=== PATIENT | female | born 1945 | race Caucasian/White ===

== ENCOUNTER 2016-09-23 15:38 | Emergency (ER) | payer MEDICARE ==
[~2016-09-23] VITALS: Ht 162.6 cm; Wt 92.3 kg
[~2016-09-23 15:38] MED LIST: CLON.1 PO; CYAN1000P SC; DICL50TA3 PO; LANSO15 PO; LANTINJ SQ; LEVO100T4 PO; LISI-363 PO; LOSA50TA PO; LOVA40TA PO; METO50TA11 PO
[2016-09-23 15:41] VITALS: BP 227/99; PULSE 68; RESP 16; TEMP 98.8; O2SAT 96
[2016-09-23] MEDS ORDERED: LANTINJ SQ (15:59)
[2016-09-23] MEDS ORDERED: EZET1TAB8 PO (15:59)
[2016-09-23] MEDS ORDERED: ATEN50TA PO (15:59)
[2016-09-23] MEDS ORDERED: CYAN100025 SL (15:59)
[2016-09-23] MEDS ORDERED: LATA0.002 EACH EYE (15:59)
[2016-09-23] MEDS ORDERED: LEVO50TA4 PO (15:59)
[2016-09-23] MEDS ORDERED: OMEP20TA PO (15:59)
[2016-09-23] MEDS ORDERED: ACETAMINOPHEN 650 MG/20.3 ML UDC PO ONE (16:15)
[2016-09-23] MEDS ORDERED: ATENOLOL 50 MG TAB PO ONE (16:15)
--- NOTE | 2016-09-23 16:18 | PD ---
HPI Chief Complaint: ENT Complaint Time Seen by Provider: 15:54 Travel History International Travel<30 days: No Contact w/Intl Traveler<30days: No Traveled to known affect area: No History of Present Illness HPI 71yo F with PMH of HTN presents to the ED with c/o right sided throat pain since last night. Also feels right ear popping. +Odynophagia. Pt has been eating soft food today. Denies any fever, drooling, cough, hoarse voice, chest pain, sob, n/v, abdominal pain, focal weakness or numbness. PFSH Past Medical History Cardiovascular Problems: Yes (syncopal episodes) High Cholesterol: Yes Diabetes: Yes Patient Takes Glucophage: No Diminished Hearing: No Hypertension: Yes Immunizations Current: Yes Thyroid Disease: Yes (Hypo-) Tetanus Vaccination: Unknown Influenza Vaccination: Yes ?: Not Menopausal: Yes Past Surgical History Cardiac Surgery: Yes (loop recorder) Cholecystectomy: Yes Hysterectomy: Yes Social History Alcohol Use: No Tobacco Use: No Substance Use: No Allergies-Medications (Allergen,Severity, Reaction): Coded Allergies: No Known Allergies (Unverified , 09/23/16) Reported Meds & Prescriptions Reported Meds & Active Scripts Active Reported Ezetimibe 10 Mg Tab 10 Mg PO DAILY Latanoprost Opth Drops (Latanoprost) 0.005% Drops 1 Drop EACH EYE HS Refrigerate until opened. Atenolol 50 Mg Tab 50 Mg PO DAILY Levothyroxine (Levothyroxine Sodium) 50 Mcg Tab 50 Mcg PO DAILY Omeprazole 20 Mg Tab 20 Mg PO DAILY Lantus Solostar Pen Inj (Insulin Glargine) 300 Unit/3 Ml Pen 1 Units SQ B-12 (Cyanocobalamin) 1,000 Mcg Subl 1,000 Mcg SL DAILY Review of Systems Except as stated in HPI: all other systems reviewed are Neg Physical Exam Narrative GENERAL: 71yo F not in distress. SKIN: Focused skin assessment warm/dry. HEAD: Atraumatic. Normocephalic. EYES: Pupils equal and round. No scleral icterus. No injection or drainage. ENT: Throat: Uvula midline. Mild peritonsillar swelling and redness on right. +right cervical lymphadenopathy. TM wnl bilaterally. NECK: Trachea midline. No JVD. CARDIOVASCULAR: Regular rate and rhythm. No murmur appreciated. RESPIRATORY: No accessory muscle use. Clear to auscultation. Breath sounds equal bilaterally. GASTROINTESTINAL: Abdomen soft, non-tender, nondistended. MUSCULOSKELETAL: No obvious deformities. No clubbing. No cyanosis. No edema. NEUROLOGICAL: Awake and alert. No obvious cranial nerve deficits. Motor grossly within normal limits. Normal speech. PSYCHIATRIC: Appropriate mood and affect; insight and judgment normal. Data Data Last Documented VS Vital Signs Date Time Temp Pulse Resp B/P Pulse Ox O2 Delivery O2 Flow Rate FiO2 09/23/16 17:26 183/88 09/23/16 15:41 98.8 68 16 96 Orders Acetaminophen 650 Mg/20 Ml Liq (Tylenol (09/23/16 16:15) Group A Rapid Strep Screen (09/23/16 16:09) Atenolol (Tenormin) (09/23/16 16:15) Strep Culture (Group A) (09/23/16 16:13) MDM Medical Decision Making Medical Screen Exam Complete: Yes Emergency Medical Condition: Yes Differential Diagnosis Viral pharyngitis vs. strep pharyngitis Narrative Course 71yo well appearing female here with complaint of right sided throat pain since last night. Also felt like her right ear is popping. Denies any fever and is able to tolerate PO although pain with eating. Did not take anything for pain at home. BP is elevated and states it is always elevated but she is almost due for her atenolol and has not taken her atenolol today. Group A strep negative. Pt given her normal dose of atenolol 50mg PO and BP is now 183/88. States that is her normal. Pt given acetaminophen liquid and pain has improved. Return precautions given. Diagnosis Primary Impression: Pharyngitis Qualified Code: J02.9 - Pharyngitis, unspecified etiology Patient Instructions: General Instructions Departure Forms: Tests/Procedures Additional Instructions: Please follow up with your PMD in 3-7 days. Return to the ED if symptoms worsen. Med/Other Pt SpecificInfo: Prescription(s) given Scripts Acetaminophen Liq (Acetaminophen Extra Strength Liq)500 Mg/15 Ml [id number] Mg PO Q6HR PRN (PAIN SCALE 1 TO 4) #20 ML Ref 0 Prov:Lisseth Rodriguez DO 09/23/16 Disposition: 01 DISCHARGE HOME Condition: Stable Lisseth Rodriguez DO Sep 23, 2016 16:18
[2016-09-23 17:26] VITALS: BP 183/88
[2016-09-23] MEDS ORDERED: ACET500L PO (17:50)
== END 2016-09-23 17:56 | disposition home or self-care (01) ==
LOC: PHEFT 15:38
DX: J02.9 Acute pharyngitis, unspecified (principal); I10 Essential (primary) hypertension
CPT/HCPCS: 87081; 87880; 99283